=== PATIENT | female | born 1945 | race American Indian/Alaskan Native ===

== ENCOUNTER 2017-12-20 13:31 | Outpatient (CLI) | payer MEDICARE, OTHER ==
--- NOTE | 2017-12-20 20:19 | XRay Report ---
FINAL REPORT EXAM: XR KNEE 3V LT HISTORY: ACUTE PAIN OF LEFT KNEE TECHNIQUE: Left knee three views PRIORS: None. FINDINGS: There is marked patellofemoral joint space narrowing. There is mild medial tibiofemoral joint space narrowing marginal tibial distal femoral osteophytes are present. There is a small joint effusion. No acute fracture identified. No dislocation seen. 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
== END 2017-12-20 13:32 | disposition home or self-care (01) ==
LOC: XRAY 13:31
PROVIDERS: ATTEND Internal Medicine
DX: M17.12 Unilateral primary osteoarthritis, left knee (principal)